=== PATIENT | male | born 1960 | race Caucasian/White ===

== ENCOUNTER 2018-03-06 10:31 | Emergency (ER) | payer OTHER ==
[2018-03-06 10:43] VITALS: TEMP 97.6; BMI 25.7
--- NOTE | 2018-03-06 10:43 | PDOC ---
History of Present Illness - General Chief Complaint: Laceration Stated Complaint: LACERATION TO BACK OF HEAD Time Seen by Provider: 03/06/18 10:41 History Source: Patient Exam Limitations: No Limitations - History of Present Illness Initial Comments: 03/06/18 10:42 58m with no pmh presents to the ED after slipping and falling on a door corner in the [place]alming suite of his home at work. He is bleeding from the back of the head from a small laceration. No LOC. NO amnesia. 03/06/18 12:44 Past History - Past Medical History Allergies/Adverse Reactions: Allergies Allergy/AdvReac Type Severity Reaction Status Date / Time No Known Allergies Allergy Unverified 03/06/18 10:33 Home Medications: Ambulatory Orders NK [No Known Home Medication] 03/06/18 Review of Systems - Review of Systems Able to Perform ROS?: Yes Is the patient limited Japanese proficient: No Constitutional: No: Symptoms Reported HEENTM: Yes: See HPI Respiratory: No: Symptoms reported Cardiac (ROS): No: Symptoms Reported ABD/GI: No: Symptoms Reported All Other Systems: Reviewed and Negative *Physical Exam - Physical Exam General Appearance: Yes: Nourished, Appropriately Dressed. No: Apparent Distress HEENT: positive: EOMI, CHUCKY, Normal ENT Inspection, Other (2.3c, laceration in right occipital region) Neck: positive: Trachea midline, Supple. negative: Tender, Tender midline Respiratory/Chest: positive: Lungs Clear, Normal Breath Sounds. negative: Chest Tender, Respiratory Distress Cardiovascular: positive: Regular Rhythm, Regular Rate, S1, S2 Gastrointestinal/Abdominal: positive: Normal Bowel Sounds, Flat, Soft. negative : Tender Extremity: positive: Normal Capillary Refill, Normal Inspection, Normal Range of Motion Neurologic: positive: Fully Oriented, Alert, Normal Mood/Affect, Normal Response , Motor Strength 5/5 Procedures - Laceration/Wound Repair Right Posterior Head Wound Explored: clean Irrigated w/ Saline: Yes Wound Repaired With: Fermin Number of Sutures: 4 Medical Decision Making - Medical Decision Making 03/06/18 11:07 58m coming after fall and close head injury. Will clean laceration with irrigation, close laceration with fermin and send home with return precautions. 03/06/18 12:41 03/06/18 12:45 *DC/Admit/Observation/Transfer Diagnosis at time of Disposition: Closed head injury - Discharge Dispostion Disposition: HOME Condition at time of disposition: Stable Decision to Admit order: No - Referrals - Patient Instructions Printed Discharge Instructions: DI for Closed Head Injury Additional Instructions: Come back to the ER in 7-10 for staple removal. Come back to the ER for any new, worsening or concerning symptoms such as headache, memory loss, vomiting, difficulty sleeping, change in mood, or change in vision. - Post Discharge Activity
--- NOTE | 2018-03-06 11:00 | PDOC ---
Attending Attestation - Resident Resident Name: PriyankaTomy - ED Attending Attestation I have performed the following: I have examined & evaluated the patient, The case was reviewed & discussed with the resident, I agree w/resident's findings & plan, Exceptions are as noted - HPI HPI: 03/06/18 10:59 58yo M hx arthritis presents to the ED after he slipped and fell backwards off the top of a movable staircase. Pt states the height was 3-4 feet and the staircase slipped from underneath him. His head striking the corner of the door on his way down before he landed on his back. Denies LOC. He noticed bleeding from the back of his head immediately afterwards. Currently reports only pain to the laceration on his head. Denies headache, N/V, dizziness, visual sxs. Had no sxs prior to the fall. Denies neck pain, back pain, CP, SOB, abd pain, extremity pain. Does not remember last tdap. - Physicial Exam PE: 03/06/18 11:18 GENERAL: Awake, alert, and fully oriented, in no acute distress HEAD: 2.5cm linear laceration to posterior R crown EYES: PERRLA, EOMI, sclera anicteric, conjunctiva clear ENT: Auricles normal inspection, hearing grossly normal, nares patent, oropharynx clear without exudates. Moist mucosa NECK: Normal ROM, supple, no lymphadenopathy, JVD, or masses LUNGS: Breath sounds equal, clear to auscultation bilaterally. No wheezes, and no crackles HEART: Regular rate and rhythm, normal S1 and S2, no murmurs, rubs or gallops ABDOMEN: Soft, nontender, normoactive bowel sounds. No guarding, no rebound. No masses EXTREMITIES: Normal range of motion, no edema. No clubbing or cyanosis. No cords, erythema, or tenderness NEUROLOGICAL: Normal speech, cranial nerves intact, negative pronator drift, 5/ 5 strength in all 4 extremities, normal sensation to light touch in all 4 extremities, normal cerebellar exam, normal gait, normal tone BACK: no midline cervical, thoracic, lumbar ttp SKIN: Warm, Dry, normal turgor, no rashes or lesions noted. - Medical Decision Making 03/06/18 11:19 58yo M presents to the ED with head lac after fall when mobile staircase moved from underneath him. Given fall from 3-4 feet will get CTH, c-spine to r/o acute injury. Will update tdap, repair lac, and reassess. 03/07/18 10:18 CT imaging negative. Lac irrigated copiously and stapled by Dr. Mathew. Pt feels well, ambulating in the ED with steady gait requesting DC. Return precautions given. I discussed the physical exam findings, ancillary test results and final diagnoses with the patient. I answered all of the patient's questions. The patient was satisfied with the care received and felt comfortable with the discharge plan and treatment plan. The patient will call their primary care physician within 24 hours to arrange follow-up and will return to the Emergency Department with any new, persistent or worsening symptoms.
[2018-03-06] MEDS ORDERED: DIPHTH,PERTUSS(ACELL),TET 0.5 ML DISP.SYRIN IM ONE (11:17)
[2018-03-06 12:41] VITALS: BP 143/92; PULSE 68
== END 2018-03-06 13:21 | disposition home or self-care (01) ==
LOC: FER 10:31
CPT/HCPCS: 70450-TC; 72125-TC; 90715; 99282-25

== ENCOUNTER 2018-03-15 13:56 | Emergency (ER) | payer OTHER ==
[2018-03-15 14:04] VITALS: BP 147/110; PULSE 78; TEMP 97.8; BMI 25.7
--- NOTE | 2018-03-15 14:04 | PDOC ---
History of Present Illness - General Chief Complaint: Suture/Staple Removal(Here) Stated Complaint: STAPLE REMOVAL Time Seen by Provider: 03/15/18 14:04 - History of Present Illness Initial Comments: 58 yearodl male without any PMH who slipped in his workplace ( home) 10 days prior and recieved sutures for a posterior head lac presenting today for suture removal. Denies any pain, swelling, discharge, fevers, or other issues. 03/15/18 17:19 Past History - Past Medical History Allergies/Adverse Reactions: Allergies Allergy/AdvReac Type Severity Reaction Status Date / Time No Known Allergies Allergy Unverified 03/06/18 10:33 Home Medications: Ambulatory Orders NK [No Known Home Medication] 03/06/18 COPD: No - Immunization History TDAP Vaccination: Yes (03/06/18) Immunization Up to Date: No - Suicide/Smoking/Psychosocial Hx Smoking History: Never smoked Have you smoked in the past 12 months: No Hx Alcohol Use: No Drug/Substance Use Hx: No Substance Use Type: None Review of Systems - Review of Systems Constitutional: No: Chills, Diaphoresis, Fever HEENTM: No: Tearing, Cataracts Respiratory: No: Cough, Shortness of Breath, Wheezing Cardiac (ROS): No: Chest Pain, Edema, Irregular Heart Rate ABD/GI: No: Constipated, Diarrhea, Nausea, Vomiting : No: Burning, Dysuria, Discharge Musculoskeletal: No: Joint Pain Integumentary: Yes: Lesions, Lumps. No: Bruising, Erythema, Flushing, Rash Neurological: No: Headache, Numbness, Paresthesia Psychiatric: No: Anxiety, Depression Endocrine: No: Flushing, Increased Urine Hematologic/Lymphatic: No: Anemia, Blood Clots *Physical Exam - Vital Signs Last Vital Signs Temp Pulse Resp BP Pulse Ox 97.8 F 78 15 147/110 H 99 03/15/18 13:56 03/15/18 13:56 03/15/18 13:56 03/15/18 13:56 03/15/18 13:56 - Physical Exam General Appearance: Yes: Nourished, Appropriately Dressed. No: Apparent Distress HEENT: positive: EOMI, CHUCKY, Normal Voice. negative: Normal ENT Inspection ( clean, dry, and intact staple site with fermin firmly in place and laceration fully healed and crusted over. ) Neck: positive: Trachea midline, Normal Thyroid, Supple. negative: Tender, Rigid Respiratory/Chest: positive: Lungs Clear, Normal Breath Sounds. negative: Chest Tender, Respiratory Distress, Accessory Muscle Use Cardiovascular: positive: Regular Rhythm, Regular Rate Gastrointestinal/Abdominal: positive: Normal Bowel Sounds, Flat, Soft. negative : Tender Lymphatic: negative: Adenopathy, Tenderness Musculoskeletal: positive: Normal Inspection. negative: Decreased Range of Motion Extremity: positive: Normal Capillary Refill, Normal Inspection, Normal Range of Motion. 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 4 sdaples were removes without issue, bacitracin was applied and patient was discharged with return precautions. 03/15/18 17:24 *DC/Admit/Observation/Transfer Diagnosis at time of Disposition: Removal of staple - Discharge Dispostion Disposition: HOME Condition at time of disposition: Improved Decision to Admit order: No - Referrals - Patient Instructions Printed Discharge Instructions: DI for Suture Removal Additional Instructions: Please use bacitracin or vaseline to keep the wound protected. 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 Please return to the ED if you have new or worsening symptoms. - Post Discharge Activity
--- NOTE | 2018-03-15 14:06 | PDOC ---
Attending Attestation - Resident Resident Name: Tere Kapoor - HPI HPI: 03/18/18 18:37 Pt presents today for staple removal for fermin placed in a scalp wound 10 days ago. PAteint has no complaints. 03/18/18 18:38 - Physicial Exam PE: 03/18/18 18:39 Agree with resident exam. Scalp wound is well healed with fermin in place. No signs of infection. - Medical Decision Making 03/18/18 18:39 Pt presents to the Ed for staple removal. fermin removed . will discharge home.
== END 2018-03-15 14:45 | disposition home or self-care (01) ==
LOC: FER 13:56
DX: Z48.02 Encounter for removal of sutures (principal)
CPT/HCPCS: 99281-25

== ENCOUNTER 2020-11-09 14:24 | Emergency (ER) | payer OTHER ==
[2020-11-09 14:29] VITALS: BMI 26.4
[2020-11-09] MEDS ORDERED: SODIUM CHLORIDE 1,000 ML IV STA (14:42)
[2020-11-09] MEDS ORDERED: FAMOTIDINE 20 MG/50 ML IVPB 20 MG/50 ML MG IVPB ONE ×2 (14:42→14:57)
[2020-11-09] MEDS ORDERED: MAG HYDROX/AL HYDROX/SIMETH -MYLANTA- ORAL SUSPENSION PO ONE (14:42)
[2020-11-09] MEDS ORDERED: MAG HYDROX/AL HYDROX/SIMETH 30 ML UNIT-DOSE CUP ONE (14:57)
[2020-11-09 15:04] LABS: HEMOGLOBIN 17.4 GM/dl (11.7-16.9); MCH 32.5 pg (25.7-33.7); MCHC 34.8 g/dl (32.0-35.9); MEAN CELL VOLUME 93.2 fl (80-96); MEAN PLT VOLUME 8.4 fl (7.5-11.1); PLATELET COUNT 315 10^3/uL (134-434); RBC 5.37 M/mm3 (4.00-5.60); RDW 12.5 % (11.9-15.9)
[2020-11-09 15:08] LABS: WHITE BLOOD COUNT 33.6 K/mm3 (4.0-10.8)
[2020-11-09 15:15] LABS: ALBUMIN 3.8 g/dl (3.4-5.0); BILIRUBIN,TOTAL 2.6 mg/dl (0.2-1); CALCIUM 8.3 mg/dl (8.5-10); TOT PROT 7.1 g/dl (6.4-8.2)
[2020-11-09] MEDS ORDERED: morphine CARPU-JECT 4 MG/1 ML DISP.SYRIN IVPUSH ONE (15:32)
[2020-11-09] MEDS ORDERED: morphine SULFATE 4 MG/ML VIAL ONE (15:34)
[2020-11-09 15:44] LABS: PLATELET ESTIMATE ADEQUATE
[2020-11-09] MEDS ORDERED: CEFEPIME HCL/D5W 2 GM/50 ML BAG IVPB ONE (16:24)
[2020-11-09] MEDS ORDERED: CEFEPIME HCL 2 GM VIAL (RESTRICTED TO ID) ONE (16:42)
[2020-11-09] MEDS ORDERED: SODIUM CHLORIDE 1,000 ML IV SCH (16:45)
[2020-11-09 17:04] LABS: ACTIVATED PTT 24.9 SECONDS (25.2-36.5)
[2020-11-09] MEDS ORDERED: LACTATED RINGERS SOLUTION 1,000 ML/1,000 ML INFUS.BAG IV STA (17:11)
[2020-11-09 17:13] LABS: INR 1.3 (0.82-1.09); PROTHROMBIN TIME (PATIENT) 14.3 SEC (10.2-13.0)
[2020-11-09 17:43] VITALS: BP 156/97; PULSE 104; TEMP 98
== END 2020-11-09 17:30 | disposition short-term general hospital (02) ==
LOC: FER 14:24
PROC: 3E03329 Introduction of Other Anti-infective into Peripheral Vein, Percutaneous Approach (ICD-10-PCS; principal; 2020-11-09)
PROC: 3E033GC Introduction of Other Therapeutic Substance into Peripheral Vein, Percutaneous Approach (ICD-10-PCS; 2020-11-09)
PROC: 3E033GC Introduction of Other Therapeutic Substance into Peripheral Vein, Percutaneous Approach (ICD-10-PCS; 2020-11-09)
PROC: 3E033NZ Introduction of Analgesics, Hypnotics, Sedatives into Peripheral Vein, Percutaneous Approach (ICD-10-PCS; 2020-11-09)
PROC: 3E0337Z Introduction of Electrolytic and Water Balance Substance into Peripheral Vein, Percutaneous Approach (ICD-10-PCS; 2020-11-09)
PROC: 3E0337Z Introduction of Electrolytic and Water Balance Substance into Peripheral Vein, Percutaneous Approach (ICD-10-PCS; 2020-11-09)
DX: K85.92 Acute pancreatitis with infected necrosis, unspecified (principal)
CPT/HCPCS: 36415; 71045-TC-FY; 74177-TC; 76705-TC; 80053; 82550; 82553; 83605; 83690; 84484; 85025; 85610; 85730; 86850; 86900; 86901; 87040; 93005; 99285-25; C9803; U0003; U0005